=== PATIENT | male | born 1995 | race Caucasian/White ===

== ENCOUNTER 2018-02-27 15:42 | Emergency (ER) | payer BC ==
[~2018-02-27] VITALS: Ht 162.6 cm; Wt 72.6 kg
[2018-02-27 15:59] VITALS: BP 119/66
[2018-02-27] MEDS ORDERED: CEPH-264 PO (16:51)
--- NOTE | 2018-02-27 16:54 | PHYS DOC ---
Past Medical History Past Medical History: No Pertinent History Past Surgical History: Tonsillectomy, Other Additional Past Surgical Histo: left ear repair; left radial frx Alcohol Use: None Drug Use: None Adult General Chief Complaint Chief Complaint: WOUND CHECK HPI HPI 22-year-old male presents to ER for wound evaluation. Patient reports on he had a possible cyst versus lipoma removed on his lower middle back by Dr. Rowe at the [facility]. Patient reports he was supposed to have follow-up appointment on Wednesday but that was canceled by the doctor's office. Patient reports over the past 5-6 days he has had yellowish drainage from the wound. Patient denies any fever or chills, nausea or vomiting, numbness or tingling, saddle anesthesia or incontinence of bowel/outer. Patient reports he has not had to take any pain medication due to minimal pain at wound site. Pt's girlfriend at bedside reports wound had looked worse when drainage started and so she has been cleaning wound more frequently. Pt's girlfriend has pictures and video of wound from 5 days ago which does appear worse than current wound condition. Review of Systems Review of Systems Constitutional: Denies fever or chills. Denies fatigue Respiratory: Denies cough or shortness of breath [] Cardiovascular: Denies CP GI: Denies abdominal pain, nausea, vomiting, bloody stools or diarrhea. Denies saddle anesthesia : Denies dysuria or hematuria. Denies incontinence Musculoskeletal: Denies joint pain. Reports back pain at surgical site which is mild and he hasn't been taking pain meds as pain has been tolerable Integument: Denies rash or skin lesions. Reports wound on mid back from surgery Neurologic: Denies headache, focal weakness or sensory changes. Denies numbness or tingling All other systems were reviewed and found to be within normal limits, except as documented in this note. Allergies Allergies Allergies Coded Allergies Type Severity Reaction Last Updated Verified No Known Drug Allergies 02/27/18 No Physical Exam Physical Exam Constitutional: Well developed, well nourished, no acute distress, non-toxic appearance. [] HENT: Normocephalic, atraumatic, oropharynx moist, nose normal. [] Eyes: pupils equal, conjunctiva normal, no discharge. [] Neck: Normal range of motion, no tenderness, supple Cardiovascular:Heart rate regular rhythm, no murmur [] Lungs & Thorax: Bilateral breath sounds clear to auscultation Abdomen: Bowel sounds normal, soft, no tenderness, no masses, no pulsatile masses. [] Skin: Warm, dry, no erythema, no rash. [] Back: Wound mid back- upper lumbar/lower thoracic area 4.5 cm sutures intact on outer borders. Wound with sm. amt of drainage which doesn't appear infectious. Center of wound is approximated with openings on both sides of center. Mild tenderness on palp. No induration/fluctuation at site Extremities: No tenderness, no cyanosis, ROM intact, no edema. [] Neurologic: Alert and oriented X 3, normal motor function, normal sensory function, no focal deficits noted. [] Psychologic: Affect normal, judgement normal, mood normal. [] Current Patient Data Vital Signs Vital Signs Date Time Temp Pulse Resp B/P (MAP) Pulse Ox O2 Delivery O2 Flow Rate FiO2 02/27/18 15:59 98.7 74 20 119/66 (83) 98 Room Air 98.7 EKG EKG [] Radiology/Procedures Radiology/Procedures [] Course & Med Decision Making Course & Med Decision Making Patient did have small amount drainage at wound site on back which did not appear infectious in appearance. Drainage was nonmalodorous and wound had no bleeding. Surrounding skin without swelling or erythema. With patient's wound appearing improved when compared to pictures and videos patient girlfriend no testing done during this ER visit. In-depth conversation had with patient and his girlfriend regarding home wound care, dressing application, and plans for patient to contact Dr. oRwe's office to discuss his concerns tomorrow. Pt's case was discussed with Dr. Elizondo who came to room for eval. of wound with this provider. Pt will be sent with Rx for Keflex as a "wait and watch" plan. Pt and girlfriend advised that if wound starts to appear infected again then they could start Rx for antibiotic. Discharge instructions were discussed and patient was educated on signs and symptoms to return to ER for. Again patient was advised to contact Dr. Rowe's office tomorrow and keep scheduled follow-up appointment on 03/04/18. Dragon Disclaimer Dragon Disclaimer This electronic medical record was generated, in whole or in part, using a voice recognition dictation system. Departure Departure Impression: Primary Impression: Encounter for evaluation of wound Disposition: 01 HOME, SELF-CARE Condition: STABLE Patient Instructions: Wound Check Additional Instructions: As discussed continue monitoring wound for signs of infection. Call Dr. Rowe' s office tomorrow and discuss ER visit and concerns. You are being provided with prescription for Keflex if wound starts to look infected start the prescription- you don't have to get filled unless signs of infection occur. Continue home wound care as discussed- keep wound covered and remove dressing frequently to monitor wound. Scripts Cephalexin (KEFLEX) 500 Mg Capsule 1 CAP PO BID, #10 CAP 0 Refills Prov: NOE MILLER APRN 02/27/18 NOE MILLER APRN Feb 27, 2018 16:54
== END 2018-02-27 17:00 | disposition home or self-care (01) ==
LOC: ER 15:42
DX: Z48.01 Encounter for change or removal of surgical wound dressing (principal); Z90.89 Acquired absence of other organs
CPT/HCPCS: 99283

== ENCOUNTER → 2018-10-07 | Day surgery (SDC) | payer BC ==
[~2018-10-07] VITALS: Ht 162.6 cm; Wt 78.0 kg
[~2018-10-07] MED LIST: BUPIVAC MPF-EPI 0.5%-1:200000 30 ML VIAL. ONE; CEPH-264 PO; CETI10TA22 PO; DEXAMETHASONE SOD PHOS 4 MG/ML VIAL ONE; HYDROmorphone 2 MG/ML VIAL IV PRN; IV RINGERS,LACTATED 1000ML 1,000 ML IV SCH; KETOROLAC 30 MG/ML INJ FOR OR. INJ ONE; LIDOCAINE 1% PF 2 ML VIAL. ID PRN; LIDOCAINE 2% PF 5 ML VIAL. ONE; MORPHINE SULFATE 2 MG/ML VIAL. IV PRN; ONDANSETRON PF 4 MG/2 ML VIAL. IV PRN; ONDANSETRON PF 4 MG/2 ML VIAL. ONE; OXYC1TAB15 PO; PROCHLORPERAZINE 10 MG/2 ML VIAL. IV PRN; PROPOFOL 20 ML IV ONE; SCOPOLAMINE 1.5MG PATCH. TD ONE; SEVOFLURANE 61 TO 120 MINUTES. IH ONE; fentaNYL PF VIAL 100 MCG/2 ML VIAL IV PRN; fentaNYL PF VIAL 100 MCG/2 ML VIAL ONE; oxyCODONE/APAP 5/325 1 TAB TABLET PO ONE
--- NOTE | 2018-10-07 12:40 | DISCH ---
DISCHARGE INSTRUCTIONS Condition on Discharge Condition on Discharge: Stable Activity After Discharge Activity Instructions for Disc: Activity as tolerated, Avoid exertion Lifting Instructions after Dis: No heavy lifting Driving Instructions after Dis: Do not drive (3-4 days) Diet after Discharge Diet after Discharge: Regular Wound Incision Care Wound/Incision Care: Ice to area for comfort Other wound/incision instructi: august shower Wednesday Follow-Up Follow Up With: Josesito ten days GABRIELLE STAHL MD Oct 07, 2018 12:40
--- NOTE | 2018-10-07 12:46 | PDOC ---
BRIEF OPERATIVE NOTE Date: Oct 07, 2018 Pre-Op Diagnosis left inguinal hernia Post-Op Diagnosis same, indirect Procedure Performed repair with mesh Surgeon Josesito Supervisor [employer] Sandrita FLAHERTY Anesthesia Type: General Blood Loss 10cc IV Fluid 600cc Specimens Obtained none Findings indirect hernia sack, adequate floor Complications none Operative Note # [id number] GABRIELLE STAHL MD Oct 07, 2018 12:45
[2018-10-07 13:23] VITALS: BP 121/69
--- NOTE | 2018-10-07 14:03 | OP ---
DATE OF SURGERY: 10/07/2018 PREOPERATIVE DIAGNOSIS: Left inguinal hernia. POSTOPERATIVE DIAGNOSIS: Left inguinal hernia, indirect. PROCEDURE: Repair with mesh. SURGEON: Gabrielle Stahl MD ANESTHESIA: General LMA. ESTIMATED BLOOD LOSS: 10. INTRAVENOUS FLUIDS: 600. DESCRIPTION OF PROCEDURE: The patient brought to the operating suite, given a general LMA and the left groin prepped and draped in usual sterile fashion. A 0.5% Marcaine with epinephrine was infiltrated along the incision line. Incision made and dissection carried down to the external oblique fascia. Bleeders were cauterized or tied as identified. Fascia opened in the direction of its fibers, extended through the external ring. Cord was swept off the pubis. [place] drain placed around it. Dissection carried back to the internal ring where a large indirect hernia sac was identified, skeletonized and reduced. This was held in reduction with a small plug of Phasix mesh. This was tacked with 2-0 PDS, taking care to avoid injury to adjacent vessels. The keyhole patch was then fashioned and placed over the floor of the canal. The slit closed with a single 2-0 PDS stitch. When hemostasis was present and a correct sponge count obtained, the cord was returned to its normal anatomical position, and the external oblique fascia closed over a running fashion with 3-0 Vicryl. Subcutaneous approximated with 3-0 Vicryl, skin closed with subcuticular 4-0 Monocryl. Steri-Strips and sterile dressing applied. The patient was awakened from his anesthetic and taken to the recovery room in satisfactory condition. GABRIELLE STAHL MD DR: MONICA/nicolas JOB#: [id number] / [id number]
== END ==
LOC: SURG 10:04
PROVIDERS: ATTEND Surgery
DX: K40.90 Unilateral inguinal hernia, without obstruction or gangrene, not specified as recurrent (principal); Z79.899 Other long term (current) drug therapy; Z98.890 Other specified postprocedural states
CPT/HCPCS: 49505; A7015; C1781; J0690; J1100; J1885; J2001; J2405; J2704; J3010; J3490

== ENCOUNTER → 2020-05-23 | Outpatient (CLI) | payer OTHER ==
[2018-10-07 13:23] VITALS: BP 121/69
[~2020-05-23] MED LIST changes: -BUPIVAC MPF-EPI 0.5%-1:200000 30 ML VIAL. ONE; -CETI10TA22 PO; +CETI10TA74 PO; -DEXAMETHASONE SOD PHOS 4 MG/ML VIAL ONE; -HYDROmorphone 2 MG/ML VIAL IV PRN; -IV RINGERS,LACTATED 1000ML 1,000 ML IV SCH; -KETOROLAC 30 MG/ML INJ FOR OR. INJ ONE; -LIDOCAINE 1% PF 2 ML VIAL. ID PRN; -LIDOCAINE 2% PF 5 ML VIAL. ONE; -MORPHINE SULFATE 2 MG/ML VIAL. IV PRN; -ONDANSETRON PF 4 MG/2 ML VIAL. IV PRN; -ONDANSETRON PF 4 MG/2 ML VIAL. ONE; -PROCHLORPERAZINE 10 MG/2 ML VIAL. IV PRN; -PROPOFOL 20 ML IV ONE; -SCOPOLAMINE 1.5MG PATCH. TD ONE; -SEVOFLURANE 61 TO 120 MINUTES. IH ONE; -fentaNYL PF VIAL 100 MCG/2 ML VIAL IV PRN; -fentaNYL PF VIAL 100 MCG/2 ML VIAL ONE; -oxyCODONE/APAP 5/325 1 TAB TABLET PO ONE
--- NOTE | 2020-05-23 14:26 | KCIC ---
3 views right hand 05/23/2020 1:55 PM Indication: Reason: RIGHT HAND PAIN / Spl. Instructions: INJURY TO RT HAND, PAIN ON MEDIAL SIDE / His tory: Comparison: None available Findings: There is an acute fracture of the distal fifth metacarpal with mild anterior angulation (heaven xer's fracture). Fracture does not appear to involve the articular surface. There is no dislocation No other fractures are seen. Joint spaces are preserved. No radiopaque foreign bodies are identified. IMPRESSION: Acute fracture of the distal fifth metacarpal Electronically signed by: Yaw Cary MD (05/23/2020 2:23 PM) [id number]
== END ==
LOC: KCIC 13:40
PROVIDERS: ATTEND Family Medicine
DX: S62.396A Other fracture of fifth metacarpal bone, right hand, initial encounter for closed fracture (principal); X58.XXXA Exposure to other specified factors, initial encounter; Y93.89 Activity, other specified; Y92.89 Other specified places as the place of occurrence of the external cause; Y99.8 Other external cause status
CPT/HCPCS: 73130